=== PATIENT | male | born 1990 | race Caucasian/White ===

== ENCOUNTER 2016-06-21 03:14 | Emergency (ER) | payer BC ==
[~2016-06-21] VITALS: Ht 182.9 cm; Wt 88.1 kg
[~2016-06-21 03:14] MED LIST: AMOXICILLIN500 MG PO; BENTYL20 MG PO; CIPRODEX OTIC7.5 ML LEFT EAR; NAPROSYN500 MG PO; ZOFRAN4 MG PO
[2016-06-21 04:25] LABS: HEMATOCRIT 41.8 % (38.0-50.0); MCHC 34.7 G/DL (30.0-36.0); MCV 83.6 FL (86-99); MEAN PLAT.VOLUME 9.4 uM^3 (9.0-12.4); PLATELET COUNT 262 K/uL (156-360); RBC DIS.WIDTH-CV 11.7 % (11.8-14.6); RBC DIS.WIDTH-SD 35.2 % (39-53); WHITE BLOOD COUNT 8.3 K/uL (4.1-10.2)
[2016-06-21 04:35] LABS: CHLORIDE 108 mEq/L (99-109); POTASSIUM 4.2 mEq/L (3.7-5.4); SODIUM 141 mEq/L (136-147)
[2016-06-21 04:37] LABS: GLUCOSE 85 mg/dL (70-99)
[2016-06-21 04:38] LABS: ANION GAP 13 MEQ/L (2-14)
[2016-06-21 04:39] LABS: TOTAL BILIRUBIN 0.3 mg/dL (0.0-1.0)
[2016-06-21 04:40] LABS: ALKALINE PHOSPHATASE 43 IU/L (3-129)
[2016-06-21 04:41] LABS: GFR ESTIMATE (CALCULATED) > 59 mL/min/
[2016-06-21 04:42] LABS: UREA NITROGEN (BUN) 13 mg/dL (9-23)
[2016-06-21 06:28] VITALS: BP 138/73
== END 2016-06-21 06:29 | disposition home or self-care (01) ==
LOC: EME 03:14
DX: R10.33 Periumbilical pain (principal); Z90.89 Acquired absence of other organs
CPT/HCPCS: 74176; 80053; 81003; 85027; 99281; 99284